=== PATIENT | male | born 1950 | race Caucasian/White ===

== ENCOUNTER 2016-12-19 13:00 | Emergency (ER) | payer OTHER ==
[~2016-12-19] VITALS: Ht 167.6 cm; Wt 75.0 kg
[~2016-12-19 13:00] MED LIST: ACET-141 PO; ATOR20TA38 PO; CEPH-443 PO; Hydrocodone Bit/Acetaminophen PO; IBUP400T22 PO; LEVO500T72 PO; LORA-441 PO; METF500T4 PO; NICO-523 TRANSDERM
[2016-12-19 13:18] VITALS: Ht 167.6 cm; Wt 75.0 kg
[2016-12-19 14:36] LABS: URINE BLOOD (Dip) POC Negative (NEGATIVE)
[2016-12-19] MEDS ORDERED: CLOT30CR24 TOP (15:03)
[2016-12-19] MEDS ORDERED: ACET500C5 PO (15:04)
--- NOTE | 2016-12-19 15:14 | ERD ---
ER Documentation Chief Complaint Date/Time DATE: 12/19/16 TIME: 15:05 Chief Complaint DISCHARGE FROM PENIS X 1 WEEK HPI Patient is a 66-year-old male with a history of diabetes and BH who presents to the emergency department for concerns of penile discharge 1 week. Patient states his penile tip is erythematous and painful to touch. Patient does report pain with urination. Patient denies any frequency, urgency or hematuria. Patient denies any fevers or chills. Patient denies any abdominal pain, nausea, vomiting or diarrhea. Patient reports normal bowel movements. No recent sex activity. ROS All systems reviewed and are negative except as per history of present illness. Medications Home Meds Active Scripts Acetaminophen* (Tylophen*) 500 Mg Capsule, 1 CAP PO Q6H Y for PAIN AND OR ELEVATED TEMP, #20 CAP Prov:FELY CHAVEZ PA-C 12/19/16 Clotrimazole* (Clotrimazole* AF) 1% - 30 Gm Cream.gm., 1 APPLIC TOP BID for 7 Days, TUB Prov:FELY CHAVEZ PA-C 12/19/16 Ibuprofen* (Ibuprofen*) 400 Mg Tablet, 400 MG PO Q6H Y for PAIN, #30 TAB Prov:USAMA REYNA MD 11/27/14 [Hydrocodone Bit/Acetaminophen] 1 TAB TAB No Conflict Check, 1 TAB PO Q6H Y for PAIN LEVEL 4-6, TAB Prov:USAMA REYNA MD 11/27/14 Metformin* (Glucophage*) 500 Mg Tab, 500 MG PO WITH BREAKFAST, #60 TAB Prov:USAMA REYNA MD 11/27/14 Cephalexin* (Keflex*) 500 Mg Capsule, 500 MG PO TID, #18 CAP Prov:USAMA REYNA MD 11/27/14 Levofloxacin* (Levaquin*) 500 Mg Tablet, 500 MG PO DAILY, #14 TAB Prov:USAMA REYNA MD 11/27/14 Nicotine* (Nicoderm* Patch) 1 Patch Patch, 1 PATCH TRANSDERM DAILY, #30 PATCH Prov:USAMA REYNA MD 11/27/14 Lorazepam* (Ativan*) 0.5 Mg Tab, 0.5 MG PO Q8H Y for ANXIETY, #15 Prov:USAMA REYNA MD 11/27/14 Reported Medications Acetaminophen* (Acetaminophen*) 500 MG Extra Strength Tablet, 500 MG PO Q6 Y for PAIN AND OR ELEVATED TEMP, TAB 11/24/14 Atorvastatin Calcium* (Atorvastatin Calcium*) 20 Mg Tablet, 20 MG PO HS, TAB 11/24/14 Allergies Allergies: Coded Allergies: No Known Allergy (Unverified , 12/19/16) PMhx/Soc History of Surgery: Yes (LT eye cataract May 2014) Anesthesia Reaction: No Hx Neurological Disorder: No Hx Respiratory Disorders: No Hx Cardiac Disorders: No Hx Psychiatric Problems: No Hx Miscellaneous Medical Probl: No Hx Alcohol Use: Yes Hx Substance Use: No Hx Tobacco Use: Yes Smoking Status: Current every day smoker FmHx Family History: No diabetes Physical Exam Vitals Vital Signs Date Time Temp Pulse Resp B/P Pulse Ox O2 Delivery O2 Flow Rate FiO2 12/19/16 13:18 97.9 94 19 157/80 99 Physical Exam GENERAL: Well-developed, well-nourished male. Appears in no acute distress. HEAD: Normocephalic, atraumatic. EYES: Pupils are equally reactive bilaterally. EOMs grossly intact. No conjunctival erythema. ENT: Moist mucous membranes. No uvula deviation. No kissing tonsils. NECK: Supple. No meningismus. Normal range of motion of the neck. LUNG: Clear to auscultation bilaterally. No rhonchi, wheezing, rales or coarse breath sounds. HEART: Regular rate and rhythm. No murmurs, rubs or gallops. ABDOMEN: Soft, nontender, and nondistended. Positive bowel sounds in all four quadrants. No rebound tenderness, no guarding. (-) McBurney's point tenderness. No CVA tenderness. 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 Normal, uncircumcised penis without any lesions or deformities. Penile tip is erythematous. No active penile discharge noted. No phimosis. No paraphimosis. Foreskin is retractable. Normal scrotum without any masses, tenderness, swelling or erythema. No inguinal hernias. Normal cremasteric reflex. BACK: No midline tenderness. EXTREMITIES: Equal pulses bilaterally. No peripheral clubbing, cyanosis or edema. No unilateral leg swelling. NEUROLOGIC: Alert and oriented. Moving all four extremities without any difficulty. Normal speech. Steady gait. SKIN: Normal color. Warm and dry. No rashes or lesions. Results 24 hrs Laboratory Tests Test 12/19/16 14:42 Bedside Urine pH (LAB) 5.5 Bedside Urine Protein (LAB) Negative Bedside Urine Glucose (UA) 0.50% Bedside Urine Ketones (LAB) Negative Bedside Urine Blood Negative Bedside Urine Nitrite (LAB) Negative Bedside Urine Leukocyte Esterase (L Negative Procedures/MDM MEDICAL DECISION MAKING: This is a 66-year-old male with a history of diabetes who presents the emergency department for concerns of penile pain and discharge 1 week. Patient also reported dysuria. Vital signs were reviewed. Patient was afebrile. Urine dip is negative for leukocyte esterase or nitrates. Urine dip did show glucose present. Given these findings, the patient's presentation is most consistent with balanitis. I have a much lower clinical concern for UTI, pyelonephritis, nephrolithiasis, appendicitis, diverticulitis, urethritis, prostatitis, epididymitis, phimosis or paraphimosis. Patient was advised to follow-up with his primary care physician for further management of his diabetes as this may be contributing to his balanitis. PRESCRIPTIONS: Clotrimazole cream, Tylenol DISCHARGE: At this time, patient is stable for discharge and outpatient management. I have instructed the patient to follow-up with his/her primary care physician in 1-2 days. Patient should repeat UA in 2 weeks to check for resolution of urinary tract infection. If symptoms persist, patient may need to see a specialist for further examinations and testing. I have instructed the patient to promptly return to the ER at any time for any new or worsening symptoms including increased pain, fever, nausea, vomiting, urinary changes or weakness. The patient and/or family expressed understanding of and agreement with this plan. All questions were answered. Home care instructions were provided. Patient's random blood sugar level was elevated (>140), but appears stable without evidence of DKA or end organ failure. I had discussion with the patient about the risk of diabetes. I have advised the patient to follow up with his/her primary care physician for outpatient monitoring and treatment for elevated blood sugar levels in 2-3 days. I have instructed the patient to return to the ER for any new or worsening symptoms including chest pain, shortness of breath, headache, confusion, abdominal pain, nausea, vomiting, weakness or LOC. Patients blood pressure was elevated (>120/80) but appears stable without evidence of hypertensive emergency, hypertensive urgency or end-organ failure. I had discussion with the patient about the risks of hypertension. I have advised the patient to follow up with his/her primary care physician for outpatient monitoring and treatment for hypertension in 2-3 days. I have instructed the patient to return to the ER for any new or worsening symptoms including chest pain, shortness of breath, headache, blurred vision, confusion, nausea, vomiting or LOC. Departure Diagnosis: Primary Impression: Balanitis Condition: Stable Patient Instructions: Diabetes: Caring for Your Body, Balanitis Referrals: CARISSA EVANS MD (PCP) WAGNER JONES MD, EUGENE MD LEFF,SHANNEN HARRINGTON,HAILEY BAIRES MD, MD= SHANAE JASON Additional Instructions: Llame al doctor MAANA y izaiah pam STEFFEN PARA DENTRO DE 1-2 BLUNT.Dgale a la secretaria que nosotros le instruimos hacer esta steffen.Avise o llame si soares condicin se empeora antes de la steffen. Regresa aqui si peor o no mejor. Va soares doctor para soares diabetes. FELY CHAVEZ PA-C Dec 19, 2016 15:14
== END 2016-12-19 15:10 | disposition home or self-care (01) ==
LOC: FTE 13:00
DX: N48.1 Balanitis (principal); F17.210 Nicotine dependence, cigarettes, uncomplicated; E11.9 Type 2 diabetes mellitus without complications; Z79.84 Long term (current) use of oral hypoglycemic drugs
CPT/HCPCS: 81003; 99283